=== PATIENT | male | born 1980 | race African-American/Black ===

== ENCOUNTER 2021-05-21 10:36 | Emergency (ER) | payer SELFPAY ==
[~2021-05-21] VITALS: Ht 180.3 cm; Wt 82.0 kg
[2021-05-21] MEDS ORDERED: DEXAMETHASONE 4 MG TABLET PO ONE (11:45)
[2021-05-21] MEDS ORDERED: KETOROLAC 15 MG/ML VIAL. IVP ONE (11:45)
--- NOTE | 2021-05-21 11:58 | RAD ---
EXAMINATION: Right shoulder radiographs. VIEWS: 3 COMPARISON: None. INDICATION:41 years, Male, right shoulder pain. FINDINGS: No acute fracture, dislocation or subluxation. No soft tissue swelling. Visualized right lung is unre markable. IMPRESSION: No acute osseous process. Electronically signed by: Sallie Holder MD (05/21/2021 11:56 AM) [facility]
[2021-05-21] MEDS ORDERED: KETOROLAC 60 MG/2 ML VIAL. IM ONE (12:00)
[2021-05-21] MEDS ORDERED: LIDO1ADH78 TP (12:16)
[2021-05-21] MEDS ORDERED: METH4TAB2 PO (12:16)
--- NOTE | 2021-05-21 12:17 | PHYS DOC ---
Past Medical History Additional Past Medical Histor: SUBSTANCE ABUSE Past Surgical History: No Surgical History Smoking Status: Current Every Day Smoker Additional Information: 1PPD. 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 Some relief with a lidocaine patch yesterday. Denies any prior injury to the right upper extremity. States marijuana helps with the shoulder pain. No h/o recent antibiotics/ fluoroquinolones. On physical exam, is noted the patient has a macular rash that patient was unaware of. He cannot recall any new lotions/c nubia/detergents/environmental or food exposures. Has no associated headache or nuchal rigidity. Review of Systems: Review of Systems: Constitutional: Denies fever or chills. [] Eyes: Denies change in visual acuity. [] HENT: Denies nasal congestion or sore throat. [] Respiratory: Denies cough or shortness of breath. [] Cardiovascular: Denies chest pain or edema. [] GI: Denies abdominal pain, nausea, vomiting, bloody stools or diarrhea. [] : Denies dysuria or hematuria Musculoskeletal: Denies back pain or flank pain. [] Integument: Denies diaphoresis or desquamation Neurologic: Denies headache, focal weakness or sensory changes. [] Endocrine: Denies polyuria or polydipsia. [] Lymphatic: Denies swollen glands. [] Psychiatric: Denies depression or anxiety. [] Heart Score: C/O Chest Pain: No Risk Factors: Risk Factors: DM, Current or recent (<one month) smoker, HTN, HLP, family histo ry of CAD, obesity. Risk Scores: Score 0 - 3: 2.5% MACE over next 6 weeks - Discharge Home Score 4 - 6: 20.3% MACE over next 6 weeks - Admit for Clinical Observation Score 7 - 10: 72.7% MACE over next 6 weeks - Early Invasive Strategies Current Medications: Current Medications Medications (Trade) Dose Ordered Sig/Tom Start Time Stop Time Status Last Admin Dose Admin Dexamethasone (Decadron) 10 mg 1X ONCE 05/21/21 11:45 05/21/21 11:46 DC 05/21/21 11:46 10 MG Ketorolac Tromethamine (Toradol 15mg Vial) 15 mg 1X ONCE 05/21/21 11:45 05/21/21 11:53 DC 05/21/21 11:50 15 MG Ketorolac Tromethamine (Toradol Im) 15 mg 1X ONCE 05/21/21 12:00 05/21/21 12:01 DC Allergies: Allergies: Allergies Coded Allergies Type Severity Reaction Last Updated Verified No Known Drug Allergies 05/21/21 No Physical Exam: PE: Constitutional: Well developed, well nourished, no acute distress, non-toxic appearance. HENT: Normocephalic, atraumatic, no oral lesions, no pharyngeal erythema or exudates, Eyes: EOMI, conjunctiva normal, no discharge. Neck: Normal range of motion, supple, Cardiovascular: S1/2 present, regular rhythm Lungs & Thorax: Speaking in full sentences, bilateral equal chest rise, no tachypnea or increased work of breathing Abdomen: soft, no tenderness, Skin: Warm, dry, hands covered with dirt, facial acne, non blanchable macular non-pruritic rash over chest/back/arms/abdomen and legs with mild scaling at center of erythema, negative nikolsky/no desquamation, no fluid-filled lesions, pt was not aware of this rash-denies groin involvement, no rash on palms/soles or in mucous membranes Back: No midline spinal step offs or tenderness, Extremities: reports ttp over right AC joint-no swelling/warmth/deformity, equal radial pulses, intact axillary/median/radial/ulnar nerve sensation, intact shoulder flexion/extension/abduction/adduction, pain illicited w/shoulder external rotation and abduction, no cyanosis, no lower extremity edema Neurologic: Alert and oriented X 3, normal motor function, normal sensory function, no focal deficits noted. [] Psychologic: Affect normal, judgement normal, mood normal. [] Current Patient Data: Vital Signs: Vital Signs Date Time Temp Pulse Resp B/P (MAP) Pulse Ox O2 Delivery O2 Flow Rate FiO2 05/21/21 11:01 98.5 86 18 122/70 (87) 99 Room Air 98.5 EKG: EKG: [] Radiology/Procedures: Radiology/Procedures: []IMAGING REPORT Signed PATIENT: CHAVEZ PICHARDO ACCOUNT: [id number] : 1980 LOCATION: ER AGE: 41 SEX: M EXAM STATUS: REG ER ORD. PHYSICIAN: JOÃO VERMA DO REASON: right shoulder pain PROCEDURE: SHOULDER 2+V RIGHT EXAMINATION: Right shoulder radiographs. VIEWS: 3 COMPARISON: None. INDICATION:41 years, Male, right shoulder pain. FINDINGS: No acute fracture, dislocation or subluxation. No soft tissue swelling. Visualized right lung is unremarkable. IMPRESSION: No acute osseous process. Electronically signed by: Elijah Holder MD (05/21/2021 11:56 AM) [facility] DICTATED and SIGNED BY: ELIJAH HOLDER MD DATE: 05/21/21 [id number] 0 Course & Med Decision Making: Course & Med Decision Making Pertinent Labs and Imaging studies reviewed. (See chart for details) Concern for atraumatic right shoulder pain with intact rom, neurovascularly intact. Pt is no significant distress. Shoulder exam appears normal. Suspect MSK injury vs early rotator cuff injury. Incidental rash seen on physicial exam-pt is non toxic appearing with no h/o URI or fever (does not appear allergic, could be viral). Tx'ed with dexamethasone in the ed and will prescribe medrol dose pack and more lido patches. I also recommended rice instructions and provided a work note. Will discharge home with strict ED return precautions were given for injury, severe pain, swelling, fever or neurologic deficits. Encouraged urgent outpatient follow-up with PMD and orthopedic surgery for definitive management, may benefit from advanced imaging such as MRI. Life-threatening processes were considered but are low suspicion at this time, given history, physical exam and ED workup. Pt was educated on all prescription medications and adverse effects. All patient's questions were answered and pt was stable at time of discharge. Life/limb-threatening differential includes but is not limited to, avascular necrosis, septic arthritis, malignancy, compartment syndrome, fracture/ligamentous injury/overuse, decompression sickness, seronegative spondyloarthropathies, trauma including dislocation/fracture, Lyme disease, lupus, arthritis differentials, gout/pseudogout or decompression sickness. I have spoken with the patient and/or caregivers. I explained the patient's condition, diagnoses and treatment plan based on the information available to me at this time. I have answered the patient and/or caregiver's questions and addressed any concerns. The patient and/or caregivers have a good understanding of patient's diagnosis, condition and treatment plan as can be expected at this point. Vital signs have been stable. Patient's condition is stable and appropriate for discharge from the emergency department. Patient will pursue further outpatient evaluation with primary care physician or other designated or consulting physician as outlined in the discharge instructions. The patient and/or caregivers are agreeable to this plan of care and follow-up instructions have been explained in detail. The patient and/or caregivers have received these instructions in written form and have expressed an understanding of the discharge instructions. The patient and/or caregivers are aware that any significant change of condition or worsening of symptoms should prompt immediate return to this or the closest emergency department or call to 911. Esa Disclaimer: Esa Disclaimer: This electronic medical record was generated, in whole or in part, using a voice recognition dictation system. Departure Departure Impression: Primary Impression: Nontraumatic pain of right shoulder Additional Impression: Rash Disposition: 01 HOME / SELF CARE / HOMELESS Condition: STABLE Referrals: NO PCP (PCP) Follow-up with your primary care physician in 24 to 48 hours OR FOLLOW UP WITH FAMILY MEDICINE: [address] [facility], [facility] [address] [place] [address] Patient Instructions: Rash, Shoulder Pain Additional Instructions: FOLLOW UP WITH ORTHOPEDICS: FOR DEFINITIVE MANAGEMENT of right shoulder pain Orthopaedic Surgery [address] [facility], [facility] [address] [place] [address] EMERGENCY DEPARTMENT GENERAL DISCHARGE INSTRUCTIONS Thank you for coming to [facility] Emergency Department (ED) today and trusting us with you care. We trust that you had a positive experience in our Emergency Department. If you wish to speak to the department management, you may call the Director at [phone]. YOUR FOLLOW UP INSTRUCTIONS ARE FOLLOWS: 1. Do you have a private Doctor? If you do not have a private doctor, please a sk for a resource list of physicians or clinics that may be able to assist you with follow up care. 2. The Emergency Physicain has interpreted your x-rays. The X-Ray specialist will also review them. If there is a change in the findings, you will be notified in 48 hours when at all possible. 3. A lab test or culture has been done, your results will be reviewed and you will be notified if you need a change in treatment. ADDITIONAL INSTRUCTIONS AND INFORMATION: 1. Your care today has been supervised by a physician who is specially trained in emergency care. Many problems require more than one evaluation for a complete diagnosis and treatment. We recommend that you schedule your follow up appointment as recommended to ensure complete treatment of you illness or injury. If you are unable to obtain follow up care and continue to have a problem, or if your condition worsens, we recommend that you return to the ED. 2. We are not able to safely determine your condition over the phone nor are we able to give sound medical advice over the phone. For these safety reasons, if you call for medical advice we will ask you to come to the ED for further evaluation. 3. If you have any questions regarding these discharge instructions please call the ED at [phone]. SAFETY INFORMATION: In the interest of safety, wellness, and injury prevention; we encourage you to wear your sealbelt, if you smoke; quite smoking, and we encourage family to use a protective helmet for bicycling and other sporting events that present an increased risk for head injury. IF YOUR SYMPTOMS WORSEN OR NEW SYMPTOMS DEVELOP, OR YOU HAVE CONCERNS ABOUT YOUR CONDITION; OR IF YOUR CONDITION WORSENS WHILE YOU ARE WAITING FOR YOUR FOLLOW UP APPOINTMENT; EITHER CONTACT YOUR PRIMARY CARE DOCTOR, THE PHYSICIAN WHOSE NAME AND NUMBER YOU WERE GIVEN, OR RETURN TO THE ED IMMEDIATELY. Scripts Lidocaine (Lido Pedro) 1 Each Adh..patch 1 EACH TP DAILY for 5 Days, #5 PATCH Apply 1 patch for 12 hours, remove for another 12 hours. May repeat, 1 patch per day as instructed above. Prov: JOÃO VERMA DO 05/21/21 Methylprednisolone (MEDROL) 4 Mg Tab.ds.pk 1 PKG PO UD for inflammation, #1 PKG Prov: JOÃO VERMA DO 05/21/21 JOÃO VERMA DO May 21, 2021 12:16
[2021-05-21 12:20] VITALS: BP 121/75
== END 2021-05-21 12:20 | disposition home or self-care (01) ==
LOC: ER 10:36
DX: M25.511 Pain in right shoulder (principal); R21 Rash and other nonspecific skin eruption; F17.200 Nicotine dependence, unspecified, uncomplicated
CPT/HCPCS: 73030; 96374; 99283; J1885; 96372

== ENCOUNTER 2021-05-26 19:52 | Emergency (ER) | payer SELFPAY ==
[~2021-05-26] VITALS: Ht 180.3 cm; Wt 75.9 kg
[~2021-05-26 19:52] MED LIST: LIDO1ADH78 TP; METH4TAB2 PO
--- NOTE | 2021-05-26 21:06 | PHYS DOC ---
Past Medical History Additional Past Medical Histor: SUBSTANCE ABUSE Past Surgical History: No Surgical History Smoking Status: Current Every Day Smoker Alcohol Use: Occasionally General Adult EDM: Chief Complaint: SEXUALLY TRANSMITTED DISEASE HPI: HPI: Patient is a 41 year old male here for painful genital ulcers for 3 weeks. He r eports multiple, tender ulcers on the penis and scrotum. He describes the lesions as og-colored with og-yellow discharge. He reports that the ulcers scab and heal but worsen again when he has sexual intercourse. Symptoms are relieved with topical Vaseline but exacerbated with sexual intercourse. Patient reports urinary urgency but denies dysuria, hematuria. He also denies abdominal or flank pain. He is sexually active with his girlfriend. Patient is currently taking steroid medication for rash on his bilateral forearms prescribed a week ago when he came here. He otherwise denies any other medications. He denies fever and chills. Heart Score: C/O Chest Pain: N/A Allergies: Allergies: Allergies Coded Allergies Type Severity Reaction Last Updated Verified No Known Drug Allergies 05/26/21 No Physical Exam: PE: Constitutional: Well developed, well nourished, no acute distress, non-toxic appearance HENT: Normocephalic, atraumatic Eyes: PERRL, EOMI, conjunctiva normal, no discharge Neck: Normal range of motion, no tenderness, supple Lungs & Thorax: No respiratory distress, equal chest rise and fall Abdomen: Soft, no tenderness Skin: Warm, dry, no erythema. Healing rash noted on bilateral forearms. Genitourinary: Multiple, tender, red ulcerations scattered in penis and scrotum. Induration noted around the foreskin region. Back: No tenderness, no CVA tenderness Extremities: No tenderness, ROM intact, no edema Neurologic: Alert and oriented X 3, normal motor function, normal sensory function, no focal deficits noted Psychologic: Affect normal, judgment normal Current Patient Data: Vital Signs: Vital Signs Date Time Temp Pulse Resp B/P (MAP) Pulse Ox O2 Delivery O2 Flow Rate FiO2 05/26/21 20:16 98.8 107 16 138/77 (97) 97 Room Air 98.8 Course & Med Decision Making: Course & Med Decision Making 41 year old male presents with multiple ulcerations on his penis and scrotum for 3 weeks. Physical exam reveals multiple tender, red ulcerations scattered throughout penis and scrotum with induration around the foreskin region. Patient's vitals are stable and he denies history of fever and chills. Urine specimen is not concerning for urinary tract infection. Symptoms are likely due to chancroid infection. Patient will be treated with Azithromycin and Ceftriaxone. Patient's girlfriend was concerned about transmission and advised her to seek medical care if she develops symptoms as we cannot treat it when she is asymptomatic. Patient stable for discharge with outpatient follow-up with PCP. Discussed findings and plan with patient, who acknowledges understanding and agreement. Esa Disclaimer: Esa Disclaimer: This electronic medical record was generated, in whole or in part, using a voice recognition dictation system. Departure Departure Impression: Primary Impression: Chancroid in male Disposition: 01 HOME / SELF CARE / HOMELESS Condition: STABLE Referrals: NO PCP (PCP) Patient Instructions: Sexually Transmitted Disease, [id number] Additional Instructions: Refrain from sexual activity for next 1 week. Your partners may need evaluation and testing for possible STDs. JUDIT FITZPATRICK DO May 26, 2021 21:06
[2021-05-26 21:22] LABS: BILIRUBIN,URINE NEGATIVE (NEG); CLARITY,URINE CLEAR; COLOR,URINE YELLOW; NITRITE,URINE NEGATIVE (NEG); PH,URINE 5.5 (<5.0-8.0); PROTEIN,URINE NEGATIVE (NEG-TRACE)
[2021-05-26 21:28] LABS: BACTERIA,URINE 0 /HPF (0-FEW); RBC,URINE OCC /HPF (0-2)
[2021-05-26] MEDS ORDERED: cefTRIAXone IM 500 MG VIAL. IM ONE (21:30)
[2021-05-26] MEDS ORDERED: AZITHROMYCIN 250 MG TABLET. PO ONE (21:30)
[2021-05-26 21:54] VITALS: BP 121/76
== END 2021-05-26 21:54 | disposition home or self-care (01) ==
LOC: ER 19:52
DX: A57 Chancroid (principal); F17.200 Nicotine dependence, unspecified, uncomplicated
CPT/HCPCS: 81001; 87086; 87491; 87591; 96372; 99283; J0696